=== PATIENT | male | born 1970 | race Caucasian/White ===

== ENCOUNTER 2020-10-24 12:47 | Inpatient (IN) | payer SELFPAY ==
[~2020-10-24] VITALS: Ht 182.9 cm; Wt 95.3 kg
[2020-10-24 12:53] VITALS: BP 158/103
[2020-10-24] MEDS ORDERED: BAMLANIVIMAB EUA (INVESTIGA.) 700 MG in IV NS 0.9% 180 ML IV ONE (13:00)
--- NOTE | 2020-10-24 14:00 | NUR ---
LUMBER PRESS OPERATOR NOTE PATIENT IN BED RESTING COMFORTABLY. PATIENT IN NO ACUTE DISTRESS. JOSE C COPE SEEN AND EVALUATED PATIENT. PATIENT NOT TO BE ADMITTED PER JOSE C COPE. PER JOSE C HE WILL DISCHARGE AFTER TREATMENT. PATIENT ON CARDIAC MONITORING SINUS RHYTHM HR 79. BP 149/74, ON RA SPO2 97%, TEMPERATURE 98.5. PATIENT BED IS LOCKED AND IN LOWEST POSITION. CALL LIGHT WITHIN REACH. WILL CONTINUE TO MONITOR.
--- NOTE | 2020-10-24 14:20 | NUR ---
BODY ENGINEER NOTE SPOKE WITH JOSE C COPE. PER JOSE C COPE MD ORDER FOR DECADRON 6MG IVP ONE TIME, DILAUDID 2MG IVP ONE TIME, ZOFRAN 4MG IVP ONE TIME, IV LR BOLUS 1 LITER ONE TIME, AND ALBUTEROL HFA 2 PUFFS Q4H PRN.
[2020-10-24] MEDS ORDERED: DEXAMETHASONE SOD PHOSPHATE 10 MG/ML VIAL IV ONE (14:30)
[2020-10-24] MEDS ORDERED: ONDANSETRON HCL/PF 4 MG/2 ML VIAL IV ONE (14:30)
[2020-10-24] MEDS ORDERED: IV LR 1000 ML 1,000 ML IV PRN (14:30)
[2020-10-24] MEDS ORDERED: ALBUTEROL SULFATE INH 18 GM HFA.AER.AD IH PRN (14:30)
[2020-10-24] MEDS ORDERED: IV LR 1000 ML 1,000 ML IV ONE (14:30)
[2020-10-24] MEDS ORDERED: HYDROMORPHONE INJ 2 MG/ML DISP.SYRIN IV ONE (14:30)
--- NOTE | 2020-10-24 14:30 | NUR ---
RN NOTE PER JOSE C DC MEDICATION RON DRAPER MD STATES PATIENT IS NOT CANDIDATE.
[2020-10-24 15:31] LABS: BASOPHILS % (AUTO) 0.6 % (0.0-2.0); EOSINOPHILS % (AUTO) 2.8 % (0.0-6.0); HEMATOCRIT 50 % (39-51); HEMOGLOBIN 17.2 g/dL (13.5-17.5); LYMPHOCYTES # (AUTO) 1.9 /CMM (0.8-4.8); LYMPHOCYTES % (AUTO) 34.2 % (20.0-44.0); MEAN CORPUSCULAR HGB CONC 34 g/dl (31.0-36.0); MEAN CORPUSCULAR VOLUME 91 fL (80-96); MONOCYTES # (AUTO) 0.5 /CMM (0.1-1.30); MONOCYTES % (AUTO) 9.8 % (2.0-12.0); NEUTROPHILS # (AUTO) 2.9 /CMM (1.8-8.9); NEUTROPHILS % (AUTO) 52.6 % (43.0-81.0); PLATELET COUNT (AUTO) 242 /CMM (150-450); RED BLOOD CELL COUNT(AUTO) 5.56 MIL/uL (4.5-6.0); WHITE BLOOD COUNT (AUTO) 5.5 K/uL (4.3-11.0)
[2020-10-24 15:49] LABS: ALBUMIN 3.6 g/dL (3.4-5.0); BILIRUBIN,TOTAL 0.3 mg/dL (0.2-1.0); CALCIUM, SERUM 8.6 mg/dL (8.5-10.1); POTASSIUM 4.2 mmol/L (3.5-5.1); TOTAL PROTEIN, SERUM 6.8 g/dL (6.4-8.2)
[2020-10-24] MEDS ORDERED: diphenhydrAMINE HCL 50 MG/ML VIAL IV STA (15:55)
--- NOTE | 2020-10-24 16:34 | NUR ---
TOOL OR DIE DRAWING CHECKER NOTE PER JOSE C COPE WILL DISCHARGE. PATIENT REFUSES SKIN ASSESSMENT PICTURES. PATIENT IN NO ACUTE DISTRESS.
--- NOTE | 2020-10-24 17:55 | NUR ---
[place] REDEVELOPMENT SPECIALIST NOTE SPOKE WITH JOSE C COPE, VERBAL MD ORDER FOR DISCHARGE BACK TO HOME. JOSE C COPE GIVEN PRESCRIPTION TO PATIENT. PATIENT IN NO ACUTE DISTRESS. NO SOB NOTED. PATIENT BREATHING IS EVEN AND UNLABORED. DC INSTRUCTIONS PROVIDED. PATIENT VERBALIZED UNDERSTANDING. REFUSING SKIN ASSESSMENT. PATIENT ID BAND REMOVED. IV REMOVED. PATIENT SON PICKING PATIENT UP FOR DISCHARGE. PATIENT AMBULATORY WITH STEADY GAIT. PATIENT KEPT CLEAN, DRY, AND COMFORTABLE. JOSE C COPE IS MADE AWARE.
== END 2020-10-24 18:00 | disposition home or self-care (01) | DRG 178 ==
LOC: ER 12:49 → TELE1 14:11
PROVIDERS: ADMIT Nurse Practitioner Acute Care; ATTEND Nurse Practitioner Acute Care
DX: U07.1 COVID-19 (principal); D68.69 Other thrombophilia; J98.01 Acute bronchospasm; E86.9 Volume depletion, unspecified; B34.9 Viral infection, unspecified; L40.50 Arthropathic psoriasis, unspecified; I10 Essential (primary) hypertension; E78.5 Hyperlipidemia, unspecified; M79.18 Myalgia, other site
CPT/HCPCS: 36415; 71045-TC; 80053-TC; 80061-TC; 82728-TC; 83615-TC; 85025-TC; 85378-TC; 86140; G0378; J1100; J1170; J1200; J2405; J7050; Q0239

== ENCOUNTER 2021-09-29 14:53 | Emergency (ER) | payer BC, OTHER ==
[~2021-09-29] VITALS: Ht 182.9 cm; Wt 97.1 kg
[2021-09-29] MEDS ORDERED: METOPROLOL TARTRATE INJ 5 MG/5 ML AMPUL IV ONE (15:00)
[2021-09-29] MEDS ORDERED: IV NS 0.9% 1,000 ML BAG IV ONE (15:00)
--- NOTE | 2021-09-29 15:04 | NUR ---
[id number], sent by Dr Hanna for worsening Left sided chest pain. Resp is even and unlabored with no apparent distress noted. Placed on hospital gown and scaler packer. Started IVHL and blood drawn sent to the lab. Will continuously monitor the patient.
[2021-09-29] MEDS ORDERED: ONDANSETRON HCL/PF 4 MG/2 ML VIAL ONE (15:11)
[2021-09-29] MEDS ORDERED: MORPHINE SULFATE INJ 2 MG/ML DISP.SYRIN ONE (15:11)
[2021-09-29 15:16] LABS: BASOPHILS % (AUTO) 0.5 % (0.0-2.0); EOSINOPHILS % (AUTO) 1.2 % (0.0-6.0); HEMATOCRIT 49 % (39-51); HEMOGLOBIN 16.5 g/dL (13.5-17.5); LYMPHOCYTES # (AUTO) 2.2 K/uL (0.8-4.8); LYMPHOCYTES % (AUTO) 26.4 % (20.0-44.0); MEAN CORPUSCULAR HGB CONC 34 g/dl (31.0-36.0); MEAN CORPUSCULAR VOLUME 92 fL (80-96); MONOCYTES # (AUTO) 0.6 K/uL (0.1-1.30); MONOCYTES % (AUTO) 7.2 % (2.0-12.0); NEUTROPHILS # (AUTO) 5.4 K/uL (1.8-8.9); NEUTROPHILS % (AUTO) 64.7 % (43.0-81.0); PLATELET COUNT (AUTO) 289 K/uL (150-450); RED BLOOD CELL COUNT(AUTO) 5.31 MIL/uL (4.5-6.0); WHITE BLOOD COUNT (AUTO) 8.4 K/uL (4.3-11.0)
--- NOTE | 2021-09-29 15:18 | NUR ---
EKG in progress at BS.
[2021-09-29 15:25] LABS: CALCIUM, SERUM 9.3 mg/dL (8.5-10.1); CARBON DIOXIDE 28 mmol/L (21-32); CHLORIDE 103 mmol/L (98-107); CREATININE 1.4 mg/dL (0.6-1.3); GLUCOSE 195 mg/dL (74-106); POTASSIUM 3.9 mmol/L (3.5-5.1); SODIUM SERUM 139 mmol/L (136-145); UREA NITROGEN, BLOOD 19 mg/dL (7-18)
[2021-09-29] MEDS ORDERED: METOPROLOL TARTRATE INJ 5 MG/5 ML AMPUL ONE ×4 (15:25→15:56)
[2021-09-29] MEDS ORDERED: MORPHINE SULFATE INJ 2 MG/ML DISP.SYRIN IV ONE (15:30)
[2021-09-29] MEDS ORDERED: ONDANSETRON HCL/PF 4 MG/2 ML VIAL IVP ONE (15:30)
[2021-09-29] MEDS: METOPROLOL TARTRATE INJ 5 MG/5 ML AMPUL IVP PRN ×5 (15:40→16:00)
[2021-09-29] MEDS ORDERED: NITROGLYCERIN 0.4 MG/TAB BOTTLE ONE (15:46)
[2021-09-29] MEDS ORDERED: NITROGLYCERIN 0.4 MG/TAB BOTTLE SL ONE (16:00)
[2021-09-29] MEDS ORDERED: CT SWABBABLE VALVE TRANS SET 1 EA INFUS.SET MC ONE (16:33)
[2021-09-29] MEDS ORDERED: IV NS 0.9% 250 ML IV ONE (16:33)
[2021-09-29] MEDS ORDERED: IOHEXOL-350 100 ML VIAL IV ONE (16:33)
[2021-09-29] MEDS ORDERED: MAG HYDROX/AL HYDROX/SIMETH 30 ML UDC PO ONE (17:00)
[2021-09-29] MEDS ORDERED: MAG HYDROX/AL HYDROX/SIMETH 30 ML UDC ONE (17:04)
--- NOTE | 2021-09-29 17:11 | NUR ---
Patient discharged to home in stable condition. Written and verbal after care instructions given. Patient verbalizes understanding of instruction. PT ambulatory with a steady gait. DC IV WITH NO ACTIVE BLEEDING
[2021-09-29 17:21] VITALS: BP 146/95
== END 2021-09-29 17:15 | disposition home or self-care (01) ==
LOC: ER 14:55
DX: R07.89 Other chest pain (principal)
CPT/HCPCS: 36415; 71045; 75574; 80048; 84484; 85025; 93005; 96361; 96374; 96375; 99285; J2270; J2405; J3490 ×4; J7030; J7050; Q9967